=== PATIENT | male | born 1975 | race Caucasian/White ===

== ENCOUNTER → 2017-02-25 | Outpatient (CLI) | payer BC ==
--- NOTE | 2017-02-25 08:29 | CT ---
EXAMINATION TYPE: CT sinus wo con DATE OF EXAM: 02/25/2017 7:04 AM COMPARISON: 11/07/2015 HISTORY: 21-year-old male with chronic sinusitis CT DLP: 628.7 mGycm Automated exposure control for dose reduction was used. TECHNIQUE: Noncontrast axial views of the paranasal sinuses were obtained. Coronal reconstructions pe rformed. FINDINGS: Similar trace mucosal thickening in the region of the right maxillary antrum. Otherwise, no significa nt mucosal thickening within the paranasal sinuses or air-fluid level. Reactive lynnette- osteogenesis is not seen. There is no destruction of the osseous salazar of the paranasal sinuses. The osteomeatal complexes are patent. Slight rightward nasal septal deviation. The imaged brain, sella, skull base and orbits are normal in appearance. Mastoid air cells and middle ear cavities are well pneumatized. Reformatted images confirm above findings. IMPRESSION: Similar trace mucosal thickening in the region of the right maxillary antrum. No other significant pa ranasal sinus disease seen. Rightward nasal septal deviation.
== END | disposition home or self-care (01) ==
LOC: RADCTMAIN 06:39
PROVIDERS: ATTEND Otolaryngology
DX: J34.89 Other specified disorders of nose and nasal sinuses (principal); J34.2 Deviated nasal septum
CPT/HCPCS: 70486

== ENCOUNTER → 2017-12-06 | Outpatient (CLI) | payer BC ==
[2017-12-06 19:10] LABS: ALT 33 U/L (21-72); AST 30 U/L (17-59); Albumin 4.2 g/dL (3.5-5.0); Alkaline Phosphatase 75 U/L (38-126); Anion Gap 13 mmol/L; Blood Urea Nitrogen 17 mg/dL (9-20); Calcium 9.7 mg/dL (8.4-10.2); Carbon Dioxide 25 mmol/L (22-30); Chloride 103 mmol/L (98-107); Cholesterol 212 mg/dL (<200); Glucose 95 mg/dL (74-99); HDL Cholesterol 46 mg/dL (40-60); LDL Cholesterol,Calculated 92 mg/dL (0-99); Potassium 4.1 mmol/L (3.5-5.1); Sodium 141 mmol/L (137-145); Total Bilirubin 0.8 mg/dL (0.2-1.3); Total Protein 7.5 g/dL (6.3-8.2); Triglycerides 371 mg/dL (<150); Uric Acid 7.7 mg/dL (3.5-8.5)
[2017-12-06 19:18] LABS: Basophils # (A) 0.1 k/uL (0-0.2); Basophils % (A) 1 %; Eosinophils # (A) 0.2 k/uL (0-0.7); Eosinophils % (A) 2 %; HCT 48.3 % (39.0-53.0); HGB 15.7 gm/dL (13.0-17.5); Lymphocytes # (A) 1.9 k/uL (1.0-4.8); Lymphocytes % (A) 22 %; MCH 29.9 pg (25.0-35.0); MCHC 32.4 g/dL (31.0-37.0); MCV 92.1 fL (80.0-100.0); Mean Platelet Volume 7.8; Monocytes # (A) 0.4 k/uL (0-1.0); Monocytes % (A) 5 %; Neutrophils % (A) 69 %; Platelet Count 239 k/uL (150-450); RBC 5.24 m/uL (4.30-5.90); WBC 8.7 k/uL (3.8-10.6)
== END | disposition home or self-care (01) ==
LOC: MMGSC 10:38
PROVIDERS: ATTEND Family Medicine
DX: Z00.00 Encounter for general adult medical examination without abnormal findings (principal); M10.9 Gout, unspecified
CPT/HCPCS: 36415; 80053; 80061; 84439; 84443; 84550; 85025

== ENCOUNTER → 2019-07-20 | Outpatient (CLI) | payer BC ==
--- NOTE | 2019-07-20 21:41 | CONS ---
CONSULTATION DATE OF SERVICE: 07/20/2019 43-year-old gentleman has been re-evaluated in Sleep Center for obstructive sleep apnea- hypopnea syndrome. HISTORY OF PRESENT ILLNESS/SLEEP WAKE EVALUATION: Patient has been diagnosed with obstructive sleep apnea about 8 years ago, was started on treatment with CPAP. After that, underwent bariatric surgery and significantly lost his weight around 80 pounds. Subsequently, his breathing at that time improved and he stopped using his CPAP equipment. Later he again increased his weight and developed snoring and headaches and his symptoms of sleep apnea again have been present. SLEEP SCHEDULE: His sleep schedule now from 10 p.m. until 6 a.m. on working days and from 10:30 p.m. to 7:15 am on weekends. FALLING ASLEEP: No problem with falling asleep, although he has TV in bedroom. Sometimes patient has problems with falling asleep with the Lexapro. He the problem with falling asleep. DURING SLEEP: Usually sleep on the side position. He snores, wakes up from sleep about 4 times with 2 episodes of nocturia. DURING THE DAY/SLEEP WAKE EVALUATION: No history of hypnagogic hallucinations, sleep paralysis or cataplexy. [place] Sleepiness Scale significantly increased to 16. PAST MEDICAL HISTORY: Positive for acid reflux, headaches, anxiety, gout. MEDICATIONS: Omeprazole, probenecid, colchicine, propranolol, Lexapro. PAST SURGICAL HISTORY: Right knee surgery, right wrist surgery, sinus surgery in 2017, elbow surgeries bilaterally. SOCIAL HISTORY: Negative for smoking. Alcohol consumption occasional. FAMILY HISTORY: Heart problems, stroke, arthritis, sinus headache, sleep apnea, snoring, acid reflux. REVIEW OF SYSTEMS: Multiple awakenings from sleep. Sleepiness during the day, headaches. PHYSICAL EXAMINATION: During physical exam, gentleman without distress. BP 150/87, HR 62, RR 16, height 5 feet and 7 inches, weight 255, body mass index 48.6, temperature 98.8, oxygen saturation at room air 97%. Oropharynx: Low position of soft palate. Mallampati 4, wide neck 19-1/4 inches in circumference. Neck Supple, no JVD. Thyroid is not palpable. LUNGS Clear to percussion and to auscultation. Good air exchange. No wheezing or rhonchi. HEART S1, S2 regular. No murmurs, gallops, or rubs. ABDOMEN: Obese. Soft and nontender. Bowel sounds are present. No organomegaly appreciated. EXTREMITIES No clubbing or cyanosis. STEELSCOPE OPERATOR Awake, alert, and oriented X3. Cranial nerves 2 to 7 intact. There is no fasciculation or atrophy. noted. No focal deficits observed. IMPRESSION: 1. History of obstructive sleep apnea-hypopnea syndrome 8 years ago, was started on treatment with CPAP but significantly lost weight and stopped treatment and then increased weight again. Presently, snoring, multiple awakenings from sleep, extremely low position of soft palate, Mallampati 4, wide neck 19-1/4 inches in circumference, sleepiness during the day. [place] Sleepiness Scale 16. Obstructive sleep apnea-hypopnea syndrome. 2. Obesity, body mass index 48.6. 3. Acid reflux. 4. Headaches. 5. Anxiety. 6. Difficulties to initiate sleep secondary to anxiety. 7. History of gout. PLAN: 1. Home sleep apnea test. 2. CPAP/BiPAP titration if sleep study confirms obstructive sleep apnea-hypopnea syndrome. 3. Preferable position during sleep on the side. 4. No driving if patient feels any sleepiness. 5. I will see patient for follow up visit to explain results of testing and following plan. Thank you very much for referring this patient for consultation. Sincerely, Jeferson Armijo MD, PhD, FAASM Diplomat of [place] [employer] [place] [employer] Reprographics Associate of [facility] [place] MMODL / MCKENNAN: [id number] /
== END | disposition home or self-care (01) ==
LOC: SLEEP 16:30
PROVIDERS: ATTEND Internal Medicine
DX: G47.33 Obstructive sleep apnea (adult) (pediatric) (principal); K21.9 Gastro-esophageal reflux disease without esophagitis; R51 Headache; F41.9 Anxiety disorder, unspecified; E66.9 Obesity, unspecified; Z68.42 Body mass index [BMI] 45.0-49.9, adult; Z87.39 Personal history of other diseases of the musculoskeletal system and connective tissue; Z79.899 Other long term (current) drug therapy; Z79.891 Long term (current) use of opiate analgesic
CPT/HCPCS: 99211

== ENCOUNTER → 2019-10-26 | Outpatient (CLI) | payer BC ==
--- NOTE | 2019-10-26 15:58 | PN ---
PROGRESS NOTE DATE OF SERVICE: 10/26/2019 This patient is a 43-year-old gentleman who has been followed in Sleep Center for treatment of obstructive sleep apnea-hypopnea syndrome. Recently the patient had a home sleep apnea test which showed moderate obstructive sleep apnea-hypopnea syndrome. After that the patient received Auto PAP and today is his first visit after starting to use CPAP equipment. The patient is able to use CPAP equipment every night without significant problems related to mask fitting, pressure or humidification. He sleeps better with the machine. Does not snore. [place] Sleepiness Scale today is 7. I checked his CPAP unit. Range of the pressure is from 5 to 20. Average pressure is 11.1. Leak is 19 L/minute. Apnea-hypopnea index is 0.9, which is absolutely perfect. MEDICATIONS: 1. Omeprazole. 2. Probenecid. 3. Colchicine. 4. Propranolol. 5. Lexapro. PHYSICAL EXAMINATION: GENERAL: A pleasant patient in no distress. VITAL SIGNS: BP 142/73, HR 60, RR 16, weight 252, temperature 98.4, oxygen saturation at room air 95%. Height 5 feet 7 inches. Body mass index 39.4. HEENT: [place]AN[place]. Evaluation of oropharynx showed tongue protrudes midline. Extremely low position of soft palate. Mallampati IV. NECK: Supple. No JVD. Thyroid is not palpable. LUNGS: Clear to percussion and to auscultation. Good air exchange. No wheezing or rhonchi. HEART: S1, S2 regular. No murmurs, gallops or rubs. ABDOMEN: Obese. EXTREMITIES: No clubbing or cyanosis. YARN TWISTER: Awake, alert, and oriented X3. Cranial nerves 2 to 7 intact. There is no fasciculation or atrophy. noted. No focal deficits observed. IMPRESSION: 1. Moderate obstructive sleep apnea-hypopnea syndrome by results of home sleep apnea test. Apnea-hypopnea index 18.8 with oxygen desaturation to 84%, under full control with Auto PAP. Patient has demonstrated great compliance with treatment, benefitting from treatment. 2. Obesity. 3. Acid reflux. 4. History of headaches. 5. History of anxiety. 6. History of gout. PLAN: 1. Patient will continue to use CPAP equipment every night for the whole night. I will decrease the maximal pressure to 15. 2. Losing weight. 3. No driving if feeling any sleepiness. 4. I will maintain all necessary prescriptions for CPAP supplies, including mask, tube, filters. 5. Losing weight. Thank you very much for allowing me to participate in the management of your patient. Sincerely, Jeferson Armijo MD, PhD, FAASM Diplomat of [place] [employer] [place] [employer] Roof Truss Detailer of [facility] [place] MMODL / MCKENNAN: [id number] /
== END ==
LOC: SLEEP 14:36
PROVIDERS: ATTEND Internal Medicine
DX: G47.33 Obstructive sleep apnea (adult) (pediatric) (principal); E66.9 Obesity, unspecified; K21.9 Gastro-esophageal reflux disease without esophagitis; R51 Headache; F41.9 Anxiety disorder, unspecified; M10.9 Gout, unspecified; Z99.89 Dependence on other enabling machines and devices; Z79.899 Other long term (current) drug therapy; Z68.39 Body mass index [BMI] 39.0-39.9, adult

== ENCOUNTER → 2019-12-19 | Outpatient (CLI) | payer BC ==
--- NOTE | 2019-12-19 11:34 | US ---
EXAMINATION TYPE: US venous doppler duplex LE LT DATE OF EXAM: 12/19/2019 10:44 AM COMPARISON: NONE CLINICAL HISTORY: M25.562 calf pain. SIDE PERFORMED: Left TECHNIQUE: The lower extremity deep venous system is examined utilizing real time linear array sonog juan with graded compression, doppler sonography and color-flow sonography. VESSELS IMAGED: External Iliac Vein (EIV) Common Femoral Vein Deep Femoral Vein Greater Saphenous Vein * Femoral Vein Popliteal Vein Small Saphenous Vein * Proximal Calf Veins (* superficial vessels) Left Leg: Negative for DVT IMPRESSION: No evidence for DVT.
== END | disposition home or self-care (01) ==
LOC: RADUSWWP 10:42
PROVIDERS: ATTEND Orthopaedic Surgery
DX: M25.562 Pain in left knee (principal); M17.12 Unilateral primary osteoarthritis, left knee; E78.5 Hyperlipidemia, unspecified; I80.9 Phlebitis and thrombophlebitis of unspecified site

== ENCOUNTER → 2020-04-25 | Outpatient (CLI) | payer BC ==
--- NOTE | 2020-04-25 18:39 | SFUN ---
SLEEP CENTER FOLLOW UP NOTE DATE OF SERVICE: 04/25/2020 This patient is a 44-year-old gentleman who has been followed in Sleep Center for treatment of obstructive sleep apnea-hypopnea syndrome. The patient successfully continues to use his CPAP equipment every night. He does not snore with the machine. He sleeps well. [place] Sleepiness Scale today is 10, which is borderline. I checked the patient's CPAP unit. Usage is 30/30 nights for more than 4 hours, average 8.1 hours per night. Pressure is in the range of 5 to 15. Average pressure is 11. Apnea-hypopnea index is only 0.7. Leak is in normal range at 13 L/minute. MEDICATIONS: Omeprazole, Lexapro. PHYSICAL EXAMINATION: GENERAL: A pleasant patient in no distress. VITAL SIGNS: BP 136/86, HR 78, RR 16, height 5 feet 6 inches, weight 235, body mass index 37.9, temperature 98, oxygen saturation at room air 97%. HEENT: PERRLA, EOMI. Evaluation of oropharynx showed tongue protrudes midline. Low position of soft palate. Mallampati IV. NECK: Supple. No JVD. Thyroid is not palpable. LUNGS: Clear to percussion and to auscultation. Good air exchange. No wheezing or rhonchi. HEART: S1, S2 regular. No murmurs, gallops or rubs. ABDOMEN: Obese. EXTREMITIES: No clubbing or cyanosis. MEDICATION TECHNICIAN: Awake, alert, and oriented X3. Cranial nerves 2 to 7 intact. There is no fasciculation or atrophy. noted. No focal deficits observed. IMPRESSION: 1. Moderate obstructive sleep apnea-hypopnea syndrome. Patient demonstrated 100% compliance with treatment, benefitting from treatment. 2. Obesity. 3. Acid reflux. 4. History of headaches. 5. Gout. 6. History of anxiety. 7. Status post left knee surgery. PLAN: 1. Patient will continue to use CPAP equipment every night for the whole night. 2. Losing weight. 3. Sleep hygiene with regular time in bed for at least 7-1/2 to 8 hours. 4. No driving if feeling any sleepiness. 5. Follow-up visit in one year, or earlier if patient has any problems. Thank you for allowing me to participate in the management of your patient. Sincerely, Jeferson Armijo MD, PhD, FAASM Diplomat of [place] [employer] [place] [employer] Farmworker [employer] of [facility] [place] MMNATASHAL / LAVINIA: [id number] /
== END | disposition home or self-care (01) ==
LOC: SLEEP 16:51
PROVIDERS: ATTEND Internal Medicine
DX: G47.33 Obstructive sleep apnea (adult) (pediatric) (principal); E66.9 Obesity, unspecified; K21.9 Gastro-esophageal reflux disease without esophagitis; M10.9 Gout, unspecified; F41.9 Anxiety disorder, unspecified; Z86.69 Personal history of other diseases of the nervous system and sense organs; Z68.37 Body mass index [BMI] 37.0-37.9, adult; Z98.890 Other specified postprocedural states; Z99.89 Dependence on other enabling machines and devices; Z79.899 Other long term (current) drug therapy

== ENCOUNTER → 2021-05-28 | Outpatient (CLI) | payer BC ==
--- NOTE | 2021-05-28 21:39 | SFUN ---
SLEEP CENTER FOLLOW UP NOTE DATE OF SERVICE: 05/28/2021 CLINICAL: 45-year-old gentleman has been followed in Sleep Center for treatment of obstructive sleep apnea-hypopnea syndrome. Titration with positive air pressure has been done for correction of respiratory abnormalities during sleep. DESCRIPTION OF PROCEDURE: The standard montage for clinical polysomnography included the electroencephalogram, the electrocardiogram, the mentalis surface electromyography and Lead II cardiography. The respiratory battery consisted of measurements of nasal /buccal air flow, pressure transducer measurements from the nose, thoracic and /or abdominal effort and intercostal surface electromyography. Video monitoring has been done to check for any parasomnia events. Nocturnal oxyhemoglobin saturations were obtained by finger oximetry. Step-peraza titration with positive airway pressure was utilized to control respiratory events. RESULTS: The patient successfully continues to use CPAP equipment every night for the whole night. [place] Sleepiness Scale today is 10, which is slightly above normal. I checked CPAP unit. Range of the pressure 5-17 with ridge pressure 14.5 cm of water. Usage is 30/30 nights for more than 4 hours. Average 8.3 hours per night. Leak is 4 L/minute which is absolutely normal. Apnea-hypopnea index is only 0.9, which is perfect. MEDICATIONS: Omeprazole 40 mg once a day. Lexapro once a day. PHYSICAL EXAMINATION: GENERAL: Patient in no distress. BP 143/86, HR 68, RR 16, height 5 feet 7 inches, weight 245. Body mass index 38.8, temperature 98.1, oxygen saturation at room air 97%. HEENT: Examination of oropharynx showed low position of soft palate. Mallampati IV. PERRLA, EOMI, evaluation of oropharynx showed tongue protrudes midline. NECK: Supple, no JVD. Thyroid is not palpable. LUNGS: Clear to percussion and to auscultation. Good air exchange. No wheezing or rhonchi. HEART: S1, S2 regular. No murmurs, gallops, or rubs. ABDOMEN: Soft and nontender. Bowel sounds are present. No organomegaly appreciated. EXTREMITIES: No clubbing or cyanosis. ANTISQUEAK WORKER: Awake, alert, and oriented X3. Cranial nerves 2 to 7 intact. There is no fasciculation or atrophy. noted. No focal deficits observed. IMPRESSION: 1. Moderate obstructive sleep apnea-hypopnea syndrome. The patient demonstrated 100% compliance with treatment total normal respiration on CPAP. 2. Obesity. 3. Acid reflux. 4. History of headaches. 5. Gout. 6. History of anxiety. 7. Status post left knee surgery. 8. Status post recent left leg fracture and surgical treatment. PLAN: 1. Patient will continue to use PAP equipment every night for the whole night. 2. Sleep hygiene with regular time in bed for at least 7-1/2 to 8 hours. 3. Precautions related to driving. No driving if feeling sleepiness. 4. I will maintain all necessary prescription for PAP supplies including mask, tube, filters. 5. Watching weight. 6. Follow-up visit in 6 months or earlier if patient has any problems. Thank you very much for allowing me to participate in the management of your patient. Jeferson Armijo MD, PhD, FAASM Diplomat of [place] Billing Clerk of [facility] [place] MMODL / MCKENNAN: [id number] /
== END ==
LOC: SLEEP 14:43
PROVIDERS: ATTEND Internal Medicine
DX: G47.33 Obstructive sleep apnea (adult) (pediatric) (principal); E66.9 Obesity, unspecified; K21.9 Gastro-esophageal reflux disease without esophagitis; F41.9 Anxiety disorder, unspecified; M10.9 Gout, unspecified; Z87.81 Personal history of (healed) traumatic fracture; Z98.890 Other specified postprocedural states; Z99.89 Dependence on other enabling machines and devices; Z68.38 Body mass index [BMI] 38.0-38.9, adult

== ENCOUNTER → 2021-12-04 | Outpatient (CLI) | payer BC ==
--- NOTE | 2021-12-04 12:19 | SFUN ---
SLEEP CENTER FOLLOW UP NOTE DATE OF SERVICE: 12/04/2021 This 46-year-old gentleman has been followed in Sleep Center for treatment of obstructive sleep apnea-hypopnea syndrome. The patient continues to use his CPAP equipment every night for the whole night, but the machine started to create a loud noise, and that may have created problems related to sleep. [place] Sleepiness Scale today is 10, which is slightly increased. I checked the patient's CPAP unit. Range of the pressure is 5 to 17, average pressure 14.4. Usage 30/30 nights and 22/30 nights more than 4 hours, average 6.2 hours per night. Leak is 0 L/minute. Apnea-hypopnea index is 2, which is totally normal. The patient also complained that when he starts to use the machine, he feels the pressure is too low and he has to wait until the pressure goes up. RAMP is off and EPR is zero. MEDICATIONS: 1. Omeprazole 40 mg once a day. 2. Lexapro 20 mg once a day. PHYSICAL EXAMINATION: GENERAL: Pleasant patient in no distress. VITAL SIGNS: BP 140/84, HR 71, RR 14, weight 258.2, temperature 96.9, height 5 feet 7 inches, The patient's weight increased by 13 pounds. Oxygen saturation at room air 96%. HEENT: PERRLA, EOMI, evaluation of oropharynx showed tongue protrudes midline. Extremely low position of soft palate; Mallampati IV. NECK: Supple, no JVD. Thyroid is not palpable. LUNGS: Clear to percussion and to auscultation. Good air exchange. No wheezing or rhonchi. HEART: S1, S2 regular. No murmurs, gallops, or rubs. ABDOMEN: Obese. EXTREMITIES: No clubbing or cyanosis. FOOD AND BEVERAGE OUTLETS MANAGER: Awake, alert, and oriented X3. Cranial nerves 2 to 7 intact. There is no fasciculation or atrophy. noted. No focal deficits observed. IMPRESSION: 1. Obstructive sleep apnea-hypopnea syndrome. Patient demonstrated 100% compliance with treatment, benefitting from treatment. The machine is noisy. The patient feels there is not enough pressure when he starts to use CPAP at the beginning of the night. 2. Obesity. 3. Acid reflux. 4. Gout. 5. History of headaches. 6. History of anxiety. 7. Status post left knee surgery. 8. Status post left leg fracture and surgical treatment. PLAN: 1. I changed regimen of the machine to range of the pressure 10 to 17. The patient tried this level pressure was satisfied. He likes it. 2. Prescription for new CPAP unit, as his machine is very noisy. 3. I changed the EPR up to 3. 4. Patient will continue to use PAP equipment every night for the whole night. 5. Sleep hygiene with regular time in bed for at least 7-1/2 to 8 hours. 6. Precautions related to driving. No driving if feeling sleepiness. 7. I will maintain all necessary prescription for PAP supplies including mask, tube, filters. 8. Watching weight. 9. Follow-up visit in 30 to 90 days after he receives his new machine to evaluate compliance and clinical effect, to be sure that everything is working properly. Thank you very much for allowing me to participate in the management of your patient. Sincerely, Jeferson Armijo MD, PhD, FAASM Diplomat of [place] [employer] Sleep Medicine Board of [place] [employer] Medicine Biostatistics Teacher of [facility] [place] MMODL / MCKENNAN: [id number] /
== END ==
LOC: SLEEP 09:57
PROVIDERS: ATTEND Internal Medicine
DX: G47.33 Obstructive sleep apnea (adult) (pediatric) (principal); E66.9 Obesity, unspecified; K21.9 Gastro-esophageal reflux disease without esophagitis; M10.9 Gout, unspecified; F41.9 Anxiety disorder, unspecified; Z98.890 Other specified postprocedural states; Z87.81 Personal history of (healed) traumatic fracture; Z79.899 Other long term (current) drug therapy

== ENCOUNTER → 2022-09-07 | Outpatient (CLI) | payer BC ==
--- NOTE | 2022-09-18 21:21 | CE ---
CARDIAC ELECTROPHYSIOLOGY REPORT STUDY PERFORMED: 7-day event monitor. INDICATIONS FOR STUDY: Cardiac arrhythmia. FINDINGS: The patient was monitored for 7 days. The baseline rhythm appeared to be sinus mechanism. The patient did have multiple episodes of sinus tachycardia. During these episodes, he was symptomatic. Otherwise, no SVT noted. No significant sinus pause or sinus arrest. No advanced AV block noted. CONCLUSION: 1. Sinus rhythm as a baseline mechanism. 2. Multiple episodes of sinus tachycardia associated with symptoms. MMODL / IJN: [id number] /
--- NOTE | 2022-09-22 10:28 | EM ---
CARDIAC ELECTROPHYSIOLOGY REPORT STUDY PERFORMED: 7-day event monitor. INDICATIONS FOR STUDY: Cardiac arrhythmia. FINDINGS: The patient was monitored for 7 days. The baseline rhythm appeared to be sinus mechanism. The patient did have multiple episodes of sinus tachycardia. During these episodes, he was symptomatic. Otherwise, no SVT noted. No significant sinus pause or sinus arrest. No advanced AV block noted. CONCLUSION: 1. Sinus rhythm as a baseline mechanism. 2. Multiple episodes of sinus tachycardia associated with symptoms. MMODL / MCKENNAN: [id number] / [facility]OOK[facility]rant
== END | disposition home or self-care (01) ==
LOC: RADECHMAIN 07:42
PROVIDERS: ATTEND Family Medicine
DX: I47.1 Supraventricular tachycardia (principal); R00.2 Palpitations
CPT/HCPCS: 93270

== ENCOUNTER 2023-07-28 19:16 | Emergency (ER) | payer BC ==
[2023-07-28 19:27] VITALS: RESP 18; TEMP 98.5
[2023-07-28] MEDS ORDERED: ONDANSETRON 4 MG/2 ML VIAL IVP STA (21:38)
[2023-07-28] MEDS ORDERED: PANTOPRAZOLE 40 MG/10 ML VIAL IVP STA (21:38)
[2023-07-28] MEDS ORDERED: SODIUM CHLORIDE 0.9% 1,000 ML IV STA (21:38)
[2023-07-28] MEDS ORDERED: MAG HYDROX/AL HYDROX/SIMETH 30 ML, HYOSCYAMINE ELIXIR 10 ML, LIDOCAINE 2% GLYDO JELLY 1... PO STA ×3 (21:39)
--- NOTE | 2023-07-28 21:59 | ED ---
General Adult HPI - General Chief complaint: Chest Pain Stated complaint: Chest pains Time Seen by Provider: 07/28/23 21:29 Source: patient, RN notes reviewed, old records reviewed Mode of arrival: ambulatory Limitations: no limitations - History of Present Illness Initial comments: Patient is a 47-year-old male who presents emergency Department complaining of possible acid reflux. Complaining of burning chest pain that radiates from the epigastric region sternally up to the back of his throat. States he does have a history of acid reflux that usually responds to antacids or omeprazole. Patient states that it has not responded over the last few days and seems somewhat worse. He has been on someone increased Tylenol and Motrin lately due to recent hand surgery. States he is following instructions when he is taking it more or less throughout the day. States as well as some pain currently. Denies any palliative or provocative factors. Unknown last EGD. Denies any nausea or vomiting. Denies any other chest pain or shortness of breath. Denies any diarrhea or constipation. It has any abdominal pain. Denies any fevers. Patient is concerned as he does have a family history of heart disease. Since her further evaluation at this time. Symptoms have been ongoing for the last 4- 5 days with minimal change or improvement. - Related Data Allergies Allergy/AdvReac Type Severity Reaction Status Date / Time cefuroxime [From Ceftin] Allergy Rash/Hives Verified 07/28/23 19:23 Review of Systems ROS Statement: Those systems with pertinent positive or pertinent negative responses have been documented in the HPI. Review of Systems: CONST: Denies fever EYES: Denies blurry vision ENT: Denies nasal congestion C/V: Endorses acid reflux type burning chest pain. RESP: Denies shortness of breath GI: Denies abdominal pain : Denies dysuria SKIN: Denies rash. MSK: Denies joint pain. NEURO: Denies headache ROS Other: All systems not noted in ROS Statement are negative. Past Medical History Past Medical History: GERD/Reflux, Hypertension History of Any Multi-Drug Resistant Organisms: None Reported Past Surgical History: Orthopedic Surgery Additional Past Surgical History / Comment(s): gastric sleeve Past Psychological History: No Psychological Hx Reported Smoking Status: Never smoker Past Alcohol Use History: None Reported Past Drug Use History: None Reported General Exam - General Exam Comments Initial Comments: General: Appears in no acute distress. HEAD: Normal with no signs of head trauma. EYES: PERRLA, EOMI, conjunctiva normal, no discharge. ENT: Hearing grossly intact, normal oropharynx. RESPIRATORY: Clear breath sounds bilaterally. No wheezes, rales, or rhonchi. C/V: Regular rate and rhythm. S1 and S2 auscultated, no edema, peripheral pulses 2+ and intact throughout ABD: Abd is soft, nontender, nondistended EXT: Normal range of motion, no obvious deformity SKIN: No rashes or lesions observed on exposed skin. NEURO: Alert and oriented x 4. Limitations: no limitations Course Vital Signs 07/28/23 07/28/23 19:24 22:52 Temperature 98.5 F Pulse Rate 72 57 L Respiratory 18 Rate Blood Pressure 152/92 144/82 O2 Sat by Pulse 98 97 Oximetry Medical Decision Making - Medical Decision Making Was pt. sent in by a medical professional or institution (, PA, CHIEF DEPUTY SHERIFF, urgent care, hospital, or [facility]...) When possible be specific @ -No Did you speak to anyone other than the patient for history (EMS, parent, family, police, friend...)? What history was obtained from this source @ -No Did you review nursing and triage notes (agree or disagree)? Why? @ -I reviewed and agree with nursing and triage notes Were old charts reviewed (outside hosp., previous admission, EMS record, old EKG, old radiological studies, urgent care reports/EKG's, [facility] records)? Report findings @ -Old charts were reviewed. Differential Diagnosis (chest pain, altered mental status, abdominal pain women, abdominal pain men, vaginal bleeding, weakness, fever, dyspnea, syncope, headache, dizziness, GI bleed, back pain, seizure, CVA, palpatations, mental health, musculoskeletal)? @ -Differential Chest Pain: Stable Angina, Unstable Angina, STEMI, NSTEMI Aortic Dissection, Pneumothorax, Musculoskeletal, Esophageal Spasm GERD, Cholecystitis, Pancreatitis, Zoster, this is not meant to be an all-inclusive list. EKG interpreted by me (3pts min.). @ -As above X-rays interpreted by me (1pt min.). @ -Chest x-ray reveals no evidence of obvious cardiopulmonary process. CT interpreted by me (1pt min.). @ -None done U/S interpreted by me (1pt. min.). @ -None done What testing was considered but not performed or refused? (CT, X-rays, U/S, labs)? Why? @ -None What meds were considered but not given or refused? Why? @ -None Did you discuss the management of the patient with other professionals (professionals i.e. , PA, CHIEF DEPUTY SHERIFF, lab, RT, psych nurse, social science manager, nurse research, teacher, court officer, case packer)? Give summary @ -No Was smoking cessation discussed for >3mins.? @ -No Was critical care preformed (if so, how long)? @ -No Were there social determinants of health that impacted care today? How? (Homelessness, low income, unemployed, alcoholism, drug addiction, transportation, low edu. Level, literacy, decrease access to med. care, long-term, rehab)? @ -No Was there de-escalation of care discussed even if they declined (Discuss DNR or withdrawal of care, Hospice)? DNR status @ -No What co-morbidities impacted this encounter? (DM, HTN, Smoking, COPD, CAD, Cancer, CVA, ARF, Chemo, Hep., AIDS, mental health diagnosis, sleep apnea, morbid obesity)? @ -GERD Was patient admitted / discharged? Hospital course, mention meds given and route, prescriptions, significant lab abnormalities, going to OR and other pertinent info. @ -Based on patient's presentation and physical exam, I do suspect patient is likely experiencing acid reflux type symptoms however cannot definitively rule out cardiac etiology. Therefore we'll obtain cardiac workup including troponin, screening EKG, chest x-ray. Abdominal labs also be obtained. Patient be sent likely to with IV fluids, Zofran,, as well as a GI cocktail. Vital signs within acceptable limits. He was in agreement this plan. EKG showed no evidence of acute ischemia.Chest x-ray revealed no evidence of acute cardio pulmonary process. Patient's laboratory studies are all within acceptable limits including an undetectable troponin. Heart scores low. On reevaluation, patient's symptoms have completely resolved following the GI cocktail. We discuss he is likely having discomfort secondary to GERD. Strict return precautions discussed. He will be discharged home this time. Recommended obtaining Mylanta or Pepto-Bismol [id number] which she was in agreement. He would like to go home. We did discuss with the patient the patient may have an ulcer if he continues to have symptoms and may require EGD. He expressed understanding. I instructed the patient to follow up with their PCP in the next 1-3 days. I provided contact information for follow up with gastroenterology. I explained that the patient should return to the emergency department if they experience any worsening symptoms. Strict return precautions were discussed with the patient. The patient expressed understanding of these instructions. I answered all questions that the patient had. The patient was discharged home in good condition with their prescriptions and follow up information. Undiagnosed new problem with uncertain prognosis? @ -No Drug Therapy requiring intensive monitoring for toxicity (Heparin, Nitro, Insulin, Cardizem)? @ -No Were any procedures done? @ -No Diagnosis/symptom? @ -GERD Acute, or Chronic, or Acute on Chronic? @ -Acute on chronic Uncomplicated (without systemic symptoms) or Complicated (systemic symptoms)? @ -Uncomplicated Side effects of treatment? @ -none Exacerbation, Progression, or Severe Exacerbation] @ -no Poses a threat to life or bodily function? @ -no - Lab Data Result diagrams: 07/28/23 21:38 07/28/23 21:38 Lab Results 07/28/23 07/28/23 07/28/23 Range/Units 21:38 21:38 21:38 WBC 7.5 (3.8-10.6) k/uL RBC 3.97 L (4.30-5.90) m/uL Hgb 14.5 (13.0-17.5) gm/dL Hct 34.8 L (39.0-53.0) % MCV 87.6 (80.0-100.0) fL MCH 36.6 H (25.0-35.0) pg MCHC 34.4 (31.0-37.0) g/dL RDW 13.5 (11.5-15.5) % Plt Count 171 (150-450) k/uL MPV 7.3 Neutrophils % 46 % Lymphocytes % 47 % Monocytes % 5 % Eosinophils % 1 % Basophils % 1 % Neutrophils # 3.4 (1.3-7.7) k/uL Lymphocytes # 3.5 (1.0-4.8) k/uL Monocytes # 0.3 (0-1.0) k/uL Eosinophils # 0.1 (0-0.7) k/uL Basophils # 0.1 (0-0.2) k/uL Sodium 138 (137-145) mmol/L Potassium 4.2 (3.5-5.1) mmol/L Chloride 107 (98-107) mmol/L Carbon Dioxide 22 (22-30) mmol/L Anion Gap 9 mmol/L BUN 11 (9-20) mg/dL Creatinine 0.78 (0.66-1.25) mg/dL Est GFR (CKD-EPI)AfAm >90 (>60 ml/min/1.73 sqM) Est GFR (CKD-EPI)NonAf >90 (>60 ml/min/1.73 sqM) Glucose 84 (74-99) mg/dL Calcium 9.1 (8.4-10.2) mg/dL Total Bilirubin 0.6 (0.2-1.3) mg/dL AST 23 (17-59) U/L ALT 23 (4-49) U/L Alkaline Phosphatase 66 (38-126) U/L Troponin I <0.012 (0.000-0.034) ng/mL Total Protein 7.0 (6.3-8.2) g/dL Albumin 4.1 (3.5-5.0) g/dL Amylase 50 (30-110) U/L Lipase 66 (23-300) U/L - EKG Data -: EKG Interpreted by Me EKG Comments: 12-lead Electrocardiogram Interpretation Note EKG was reviewed and interpreted by myself. 12-lead ECG performed at 1938 is interpreted by me as revealing normal sinus rhythm at a rate of 62 beats per m inute. Pilot is normal. VA interval is 146 ms, QRS duration is 92 ms, QTc is 391 ms.. There were no ST or T wave abnormalities to suggest myocardial ischemia or injury. R wave progression across the precordium was satisfactory. By my interpretation this EKG is non-diagnostic for acute ischemia. Disposition Clinical Impression: GERD (gastroesophageal reflux disease) Disposition: HOME SELF-CARE Condition: Good Instructions (If sedation given, give patient instructions): GERD (Gastroesophageal Reflux Disease) (ED) Is patient prescribed a controlled substance at d/c from ED?: No Referrals: Dot Marsh MD [Primary Care Provider] - 1-2 days Melissa Rosario MD [STAFF PHYSICIAN] - 1-2 days Time of Disposition: 23:18
[2023-07-28 22:39] LABS: Basophils # (A) 0.1 k/uL (0-0.2); Basophils % (A) 1 %; Eosinophils # (A) 0.1 k/uL (0-0.7); Eosinophils % (A) 1 %; HCT 34.8 % (39.0-53.0); HGB 14.5 gm/dL (13.0-17.5); Lymphocytes # (A) 3.5 k/uL (1.0-4.8); Lymphocytes % (A) 47 %; MCH 36.6 pg (25.0-35.0); MCV 87.6 fL (80.0-100.0); Mean Platelet Volume 7.3; Monocytes # (A) 0.3 k/uL (0-1.0); Monocytes % (A) 5 %; Neutrophils # (A) 3.4 k/uL (1.3-7.7); Neutrophils % (A) 46 %; Platelet Count 171 k/uL (150-450); RBC 3.97 m/uL (4.30-5.90); RDW 13.5 % (11.5-15.5); WBC 7.5 k/uL (3.8-10.6)
--- NOTE | 2023-07-28 22:41 | XR ---
EXAMINATION TYPE: XR chest 2V DATE OF EXAM: 07/28/2023 COMPARISON: Chest x-ray June 11, 2022 HISTORY: Abdominal pain. Burning chest pain. TECHNIQUE: Frontal and lateral views of the chest are obtained. FINDINGS: Somewhat low lung volumes redemonstrated. There is no suspicious new focal air space opacit y, pleural effusion, or pneumothorax seen. The cardiac silhouette size is stable and within normal l imits. The osseous structures are intact. IMPRESSION: No acute process. No significant change from prior.
[2023-07-28 22:45] LABS: MCHC 34.4 g/dL (31.0-37.0)
[2023-07-28 22:51] LABS: ALT 23 U/L (4-49); AST 23 U/L (17-59); African American GFR (CKD) >90 (>60 ml/min/1.73 sqM); Albumin 4.1 g/dL (3.5-5.0); Alkaline Phosphatase 66 U/L (38-126); Amylase 50 U/L (30-110); Anion Gap 9 mmol/L; Blood Urea Nitrogen 11 mg/dL (9-20); Calcium 9.1 mg/dL (8.4-10.2); Carbon Dioxide 22 mmol/L (22-30); Chloride 107 mmol/L (98-107); Glucose 84 mg/dL (74-99); Lipase 66 U/L (23-300); Non-African American GFR(CKD) >90 (>60 ml/min/1.73 sqM); Potassium 4.2 mmol/L (3.5-5.1); Sodium 138 mmol/L (137-145); Total Bilirubin 0.6 mg/dL (0.2-1.3)
[2023-07-28 22:57] VITALS: BP 144/82; PULSE 57
== END 2023-07-28 23:23 | disposition home or self-care (01) ==
LOC: EC 19:16
DX: K21.9 Gastro-esophageal reflux disease without esophagitis (principal); I10 Essential (primary) hypertension; Z88.1 Allergy status to other antibiotic agents
CPT/HCPCS: 36415; 93005; 80053; 82150; 83690; 84484; 85025; 71046; 99285; 96374; 96375; 96361; J2405; C9113

== ENCOUNTER 2024-04-18 17:11 | Observation (INO) | payer BC ==
--- NOTE | 2024-04-18 17:50 | ED ---
Chest Pain HPI - General Source: patient, RN notes reviewed Mode of arrival: ambulatory Limitations: no limitations <Josie Araujo - Last Filed: 04/18/24 17:47> <Prasad Foster - Last Filed: 04/18/24 21:50> - General Chief Complaint: Chest Pain Stated Complaint: Chest pain, SOB, sent by PCP Time Seen by Provider: 04/18/24 17:29 - History of Present Illness Initial Comments: Quick Note-patient is a 48-year-old female presents emergency department chief complaint of chest pain and shortness of breath. Chest pain is consistently located on the left side of his chest wall radiating to his jaw. Patient was seen roughly 2 weeks ago In the Emergency Room. Workup was obtained. Patient was discharged home. He denies personal history of heart attack, CVA,no blood thinner use. Patient was advised by his primary care provider to quit emergency department for further evaluation. (Josie Araujo) Dictation was produced using [employer] ([employer]) dictation software. please excuse any grammatical, word or spelling errors. Chief Complaint: 48-year-old male with chest pain History of Present Illness: Patient is a 48-year-old male who has past medical history of hypertension presents to the ER for chest pressure. Patient states that his symptoms began a week and a half ago when he was at a rodeo for his daughter. Then he had episode of chest pressure nausea and a little bit of diaphoresis. He was checked out by gas reverser found to have elevated blood pressure. He was sent to the emergency department where they did some workup. Apparently his workup was negative he was discharged sent to follow-up with his primary care doctor. Primary care doctor ordered stress test. He told his primary care doctor that his symptoms, return. He is reevaluated by the PCP and sent to the ER. Patient complains of mild pressure. He apparently has extensive, history. The ROS documented in this emergency department record has been reviewed and confirmed by me. Those systems with pertinent positive or negative responses have been documented in the HPI. All other systems are other negative and/or noncontributory. (Prasad Foster) - Related Data Allergies Allergy/AdvReac Type Severity Reaction Status Date / Time cefuroxime [From Ceftin] Allergy Rash/Hives Verified 07/28/23 19:23 Review of Systems ROS Other: All systems not noted in ROS Statement are negative. <Josie Araujo - Last Filed: 04/18/24 17:47> ROS Other: All systems not noted in ROS Statement are negative. <Prasad Foster - Last Filed: 04/18/24 21:50> ROS Statement: Those systems with pertinent positive or pertinent negative responses have been documented in the HPI. Past Medical History Past Medical History: GERD/Reflux, Hypertension History of Any Multi-Drug Resistant Organisms: None Reported Past Surgical History: Orthopedic Surgery Additional Past Surgical History / Comment(s): gastric sleeve Past Psychological History: No Psychological Hx Reported Smoking Status: Never smoker Past Alcohol Use History: None Reported Past Drug Use History: None Reported <Pablo Araujooe - Last Filed: 04/18/24 17:47> General Exam Limitations: no limitations <Pablo Araujooe - Last Filed: 04/18/24 17:47> <Prasad Foster - Last Filed: 04/18/24 21:50> - General Exam Comments Initial Comments: Visual Physical Exam Vital signs reviewed General: Well-appearing, nontoxic, no acute distress. Head: Normocephalic, atraumatic Eyes: PERRLA, EOMI ENT: Airway patent Chest: Nonlabored breathing Skin: No visual rash, normal skin tone Neuro: Alert and oriented 3 Musculoskeletal: No gross abnormalities (Manuelaelemacey,Josie) PHYSICAL EXAM: General Impression: Alert and oriented x3, not in acute distress HEENT: Normocephalic atraumatic, extra-ocular movements intact, pupils equal and reactive to light bilaterally, mucous membranes moist. Cardiovascular: Heart regular rate and rhythm Chest: Able to complete full sentences, no retractions, no tachypnea Abdomen: abdomen soft, non-tender, non-distended, no organomegaly Musculoskeletal: Pulses present and equal in all extremities, no peripheral edema Motor: no focal deficits noted Neurological: CN II-XII grossly intact, no focal motor or sensory deficits noted Skin: Intact with no visualized rashes Psych: Normal affect and mood (Prasad Foster) Course Vital Signs 04/18/24 17:32 Temperature 98 F Pulse Rate 77 Respiratory 18 Rate Blood Pressure 138/91 O2 Sat by Pulse 98 Oximetry Chest Pain MDM <Josie Araujo - Last Filed: 04/18/24 17:47> <Prasad Foster - Last Filed: 04/18/24 21:50> - [facility] I completed the quick note portion of this chart signed Josie Araujo PA-C (Josie Araujo) Was pt. sent in by a medical professional or institution (IVETTE Hassan, RETURNED TELEPHONE EQUIPMENT APPRAISER, urgent care, hospital, or alf...) When possible be specific @ -No Did you speak to anyone other than the patient for history (EMS, parent, family, police, friend...)? What history was obtained from this source @ -No Did you review nursing and triage notes (agree or disagree)? Why? @ -I reviewed and agree with nursing and triage notes Were old charts reviewed (outside hosp., previous admission, EMS record, old EKG, old radiological studies, urgent care reports/EKG's, alf records)? Report findings @ -No old charts were reviewed Differential Diagnosis (chest pain, altered mental status, abdominal pain women, abdominal pain men, vaginal bleeding, musculoskeletal, weakness, fever, dyspnea, syncope, headache, dizziness, GI bleed, back pain, seizure, CVA, palpatations, mental health)? @ -Differential Chest Pain: Stable Angina, Unstable Angina, STEMI, NSTEMI Aortic Dissection, Pneumothorax, Musculoskeletal, Esophageal Spasm GERD, Cholecystitis, Pancreatitis, Zoster, this is not meant to be an all-inclusive list. EKG interpreted by me (3pts min.). @ -My EKG interpretation: Ventricular rate 70, sinus rhythm,. 114, cures 95, QTc 4 5. No LA prolongation, no QTC prolongation, no ST or T-wave changes noted. Overall, this EKG is unremarkable X-rays interpreted by me (1pt min.). @ -Chest x-ray is nonacute CT interpreted by me (1pt min.). @ -None done U/S interpreted by me (1pt. min.). @ -None done What testing was considered but not performed or refused? (CT, X-rays, U/S, labs)? Why? @ -None What meds were considered but not given or refused? Why? @ -None Did you discuss the management of the patient with other professionals (professionals i.e. IVETTE Hassan, RETURNED TELEPHONE EQUIPMENT APPRAISER, lab, RT, psych nurse, clinical social worker, bologna maker, teacher, correctional officer lieutenant, block and case maker)? Give summary @ -Case discussed with hospitalist for admission Was smoking cessation discussed for >3mins.? @ -No Was critical care preformed (if so, how long)? @ -No Were there social determinants of health that impacted care today? How? (Homelessness, low income, unemployed, alcoholism, drug addiction, transportation, low edu. Level, literacy, decrease access to med. care, shelter, rehab)? @ -No Was there de-escalation of care discussed even if they declined (Discuss DNR or withdrawal of care, Hospice)? DNR status @ -No What co-morbidities impacted this encounter? (DM, HTN, Smoking, COPD, CAD, Cancer, CVA, ARF, Chemo, Hep., AIDS, mental health diagnosis, sleep apnea, morbid obesity)? @ -None Was patient admitted / discharged? Hospital course, mention meds given and route, prescriptions, significant lab abnormalities, going to OR and other pertinent info. @ -48-year-old male presents to the emergency department with symptoms suspicious of unstable angina. Vital signs upon arrival are within acceptable limits. Patient has multiple high risk features. Laboratory evaluation obtained found to be unremarkable. Troponin is negative. EKG is nonischemic. Patient will be admitted observation consultation to cardiology. Undiagnosed new problem with uncertain prognosis? @ -No Drug Therapy requiring intensive monitoring for toxicity (Heparin, Nitro, Insulin, Cardizem)? @ -No Were any procedures done? @ -No Diagnosis/symptom? Acute, or Chronic, or Acute on Chronic? Uncomplicated (without systemic symptoms) or Complicated (systemic symptoms)? @ -Acute coronary syndrome Side effects of treatment? @ -No Exacerbation, Progression, or Severe Exacerbation? @ -No Poses a threat to life or bodily function? How? (Chest pain, [place], [place], pneumonia, PE, COPD, DKA, ARF, appy, cholecystitis, CVA, Diverticulitis, Homicidal, Suicidal, threat to staff... and all critical care pts) @ -yes (Prasad Foster) Disposition <Josie Araujo - Last Filed: 04/18/24 17:47> Decision Time: 21:50 <Prasad Foster - Last Filed: 04/18/24 21:50> Clinical Impression: ACS (acute coronary syndrome) Disposition: ADMITTED IP TO THIS HOSP Condition: Fair Referrals: Margarita Pierre DO [Primary Care Provider] - 1-2 days
[2024-04-18 19:54] LABS: Basophils # (A) 0.1 k/uL (0-0.2); Basophils % (A) 1 %; Eosinophils # (A) 0.1 k/uL (0-0.7); Eosinophils % (A) 2 %; HGB 14.7 gm/dL (13.0-17.5); Lymphocytes # (A) 3.1 k/uL (1.0-4.8); Lymphocytes % (A) 42 %; MCH 29.2 pg (25.0-35.0); MCHC 32.8 g/dL (31.0-37.0); Mean Platelet Volume 6.8; Monocytes # (A) 0.4 k/uL (0-1.0); Monocytes % (A) 6 %; Neutrophils # (A) 3.6 k/uL (1.3-7.7); Neutrophils % (A) 48 %; Platelet Count 199 k/uL (150-450); RBC 5.05 m/uL (4.30-5.90); RDW 13.2 % (11.5-15.5); WBC 7.4 k/uL (3.8-10.6)
[2024-04-18 20:06] LABS: ALT 31 U/L (4-49); African American GFR (CKD) >90 (>60 ml/min/1.73 sqM); Albumin 4.5 g/dL (3.5-5.0); Anion Gap 10 mmol/L; Blood Urea Nitrogen 16 mg/dL (9-20); Calcium 8.7 mg/dL (8.4-10.2); Carbon Dioxide 24 mmol/L (22-30); Chloride 106 mmol/L (98-107); Glucose 98 mg/dL (74-99); Non-African American GFR(CKD) >90 (>60 ml/min/1.73 sqM); Sodium 140 mmol/L (137-145); Total Bilirubin 0.7 mg/dL (0.2-1.3); Total Protein 7.2 g/dL (6.3-8.2)
[2024-04-18 20:10] LABS: INR 0.9 (<1.2); Partial Thromboplastin Time 24.1 sec (22.0-30.0); Prothrombin Time 10.2 sec (10.0-12.5)
[2024-04-18 20:14] LABS: NT-Pro-B-Type Natriuretic Pept <20 pg/mL
[2024-04-18 20:24] LABS: AST 34 U/L (17-59); Alkaline Phosphatase 60 U/L (38-126); Magnesium 2.2 mg/dL (1.6-2.3); Potassium 4.3 mmol/L (3.5-5.1)
--- NOTE | 2024-04-18 20:33 | XR ---
EXAMINATION TYPE: XR chest 2V DATE OF EXAM: 04/18/2024 7:25 PM CLINICAL INDICATION:Male, 48 years old with history of Chest Pain; [facility] COMPARISON: Chest radiographs from 07/28/2023 TECHNIQUE: XR chest 2V Frontal and lateral views of the chest. FINDINGS: Lungs/Pleura: There is no evidence of pleural effusion, focal consolidation, or pneumothorax. Pulmonary vascularity: Unremarkable. Heart/mediastinum: Cardiomediastinal silhouette is unremarkable. Musculoskeletal: No acute osseous pathology. IMPRESSION: No acute cardiopulmonary disease/process.
[2024-04-18] MEDS ORDERED: NITROGLYCERIN SL TABS 0.4 MG TAB SUBLINGUAL PRN (21:50)
[2024-04-18] MEDS: ASPIRIN 81 MG PO STA (22:07)
[2024-04-18] MEDS: NITROGLYCERIN SL TABS 0.4 MG TAB SUBLINGUAL STA (22:08)
[2024-04-18] MEDS: KETOROLAC 15 MG/ML 1 ML VIAL IVP STA (23:06)
[2024-04-19] MEDS ORDERED: DOBUTamine DRIP for NUC MED 500 MG in DEXTROSE/WATER 1 250ML.BAG IV PRN (08:00)
[2024-04-19] MEDS ORDERED: ASPIRIN 325 MG TAB PO SCH (09:00)
[2024-04-19 09:10] LABS: Chol/HDL Ratio 4.56 Ratio; LDL Cholesterol,Calculated 124.7 mg/dL (0.0-131.0)
[2024-04-19] MEDS: ASPIRIN 81 MG PO SCH (09:20)
[2024-04-19] MEDS: lisinopriL 10 MG TAB PO SCH (09:21)
--- NOTE | 2024-04-19 11:32 | P.CRDCN ---
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 We have been asked to evaluate the patient for chest pain. Patient states he started having discomfort in his chest about a month ago it was a pain or pressure and he noticed that it went into his left shoulder and left jaw. He was at an event with his daughter where EMS checked his blood pressure and it was high and he was feeling flushed. He was treated at [facility] in [place] in the improved his blood pressure and let him go home. He followed up with LINDA Gao, PCP and has been scheduled for stress test on Wednesday and echocardiogram in May. Patient was instructed to come back if the patient had worsening chest pain but he noticed that he has been having ongoing chest pain called the office and was sent into the hospital. Patient is a non-smoker. Patient is seen today in the emergency center waiting for bed on the cardiac stepdown unit. EKG: Sinus rhythm with no acute ST-T wave changes x 2 Chest x-ray: No acute process Laboratory studies: CBC, CMP, D-dimer all within normal limits. Troponin negative x 3. Triglycerides 165, cholesterol 202, LDL 124, HDL 44. Home cardiac medications: Atorvastatin 40 mg at bedtime, lisinopril 10 mg daily, Toprol XL 50 mg daily. Patient is also on Wegovy. Review Of Systems: At the time of my exam: CONSTITUTIONAL: Denies fever or chills. HEENT: Denies blurred vision, vision changes, or eye pain. Denies hemoptysis CARDIOVASCULAR: Denies chest pain. Denies orthopnea. Denies PND. Denies palpitations RESPIRATORY: Denies shortness of breath. GASTROINTESTINAL: Denies abdominal pain. Denies nausea or vomiting. HEMATOLOGIC: Denies bleeding disorders. GENITOURINARY: Denies any blood in urine. SKIN: Denies puritis. Denies rash. Physical examination: Gen: This is a 48-year-old male in no acute distress VS: reviewed, blood pressure 126/84, heart rate 73, pulse ox 96% on room air. HEENT: Head is atraumatic, normocephalic. Pupils equal, round. Sclerae is anicteric. NECK: Supple. No JVD. LUNGS: Clear to auscultation. No wheezes or rhonchi. No intercostal retractions. HEART: Regular rate and rhythm. No murmur. ABDOMEN: Soft No tenderness. EXTREMITIES: No pedal edema. No calf tenderness. NEUROLOGICAL: Patient is awake, alert and oriented x3. Assessment: Chest pain, acute coronary syndrome ruled out Family history of premature coronary artery disease Hypertension Hyperlipidemia Plan: Resume patient's home cardiac medications Obtain A1c Schedule patient for dobutamine stress echo today Obtain 2-D echocardiogram and Doppler study to assess cardiac structure and function If testing is unremarkable, patient is cleared for discharge and may follow-up in the office in [address] Macario. Thank you kindly for this consultation. Nurse practitioner note has been reviewed, I agree with documented findings and plan of care. Patient was seen and examined. Past Medical History Past Medical History: GERD/Reflux, Hypertension History of Any Multi-Drug Resistant Organisms: None Reported Past Surgical History: Orthopedic Surgery Additional Past Surgical History / Comment(s): gastric sleeve Past Psychological History: No Psychological Hx Reported Smoking Status: Never smoker Past Alcohol Use History: None Reported Past Drug Use History: None Reported Medications and Allergies Home Medications Medication Instructions Recorded Confirmed Type ARIPiprazole [Abilify] 2 mg PO HS 04/19/24 04/19/24 History Atorvastatin [Lipitor] 40 mg PO HS #30 tab 04/19/24 Rx Metoprolol Succinate (ER) [Toprol 50 mg PO DAILY 04/19/24 04/19/24 History XL] Omeprazole [PriLOSEC] 40 mg PO DAILY 04/19/24 04/19/24 History Probenecid/Colchicine 1 tab PO DAILY 04/19/24 04/19/24 History [Probenecid-Colchicine Tablet] Semaglutide [Wegovy] 1 mg SQ FR 04/19/24 04/19/24 History Testosterone [Testosterone 1.62% 1.25 gm TRANSDERM HS 04/19/24 04/19/24 History (1250 mg)] Venlafaxine HCl [Effexor XR] 150 mg PO DAILY 04/19/24 04/19/24 History clonazePAM [KlonoPIN] 1 mg PO HS 04/19/24 04/19/24 History lisinopriL [Zestril] 10 mg PO DAILY #30 tab 04/19/24 Rx Allergies Allergy/AdvReac Type Severity Reaction Status Date / Time cefuroxime [From Ceftin] Allergy Rash/Hives Verified 04/19/24 08:07 Physical Exam Vitals: Vital Signs Temp Pulse Resp BP Pulse Ox 04/19/24 06:59 76 18 136/84 97 04/19/24 04:13 67 18 101/61 94 L 04/18/24 22:05 70 18 136/87 95 04/18/24 17:32 98 F 77 18 138/91 98 Intake and Output 04/18/24 04/19/24 04/19/24 22:59 06:59 14:59 Other: Weight 109.769 kg Results 04/18/24 19:31 04/18/24 19:31 Cardiac Enzymes 04/18/24 04/18/24 04/18/24 Range/Units 19:31 19:31 22:08 AST 34 (17-59) U/L Troponin I <0.012 <0.012 (0.000-0.034) ng/mL 04/19/24 Range/Units 02:04 AST (17-59) U/L Troponin I <0.012 (0.000-0.034) ng/mL Coagulation 04/18/24 Range/Units 19:31 PT 10.2 (10.0-12.5) sec APTT 24.1 (22.0-30.0) sec CBC 04/18/24 Range/Units 19:31 WBC 7.4 (3.8-10.6) k/uL RBC 5.05 (4.30-5.90) m/uL Hgb 14.7 (13.0-17.5) gm/dL Hct 45.0 (39.0-53.0) % Plt Count 199 (150-450) k/uL Comprehensive Metabolic Panel 04/18/24 Range/Units 19:31 Sodium 140 (137-145) mmol/L Potassium 4.3 (3.5-5.1) mmol/L Chloride 106 (98-107) mmol/L Carbon Dioxide 24 (22-30) mmol/L BUN 16 (9-20) mg/dL Creatinine 0.74 (0.66-1.25) mg/dL Glucose 98 (74-99) mg/dL Calcium 8.7 (8.4-10.2) mg/dL AST 34 (17-59) U/L ALT 31 (4-49) U/L Alkaline Phosphatase 60 (38-126) U/L Total Protein 7.2 (6.3-8.2) g/dL Albumin 4.5 (3.5-5.0) g/dL Current Medications Generic Name Dose Route Start Last Admin Trade Name Freq PRN Reason Stop Dose Admin Aspirin 325 mg 04/19/24 09:00 Aspirin 325 Mg Tab PO DAILY JASON Nitroglycerin 0.4 mg 04/18/24 21:50 Nitroglycerin Sl Tabs 0.4 Mg Tab SUBLINGUAL Q5M PRN Chest Pain Intake and Output 04/18/24 04/19/24 04/19/24 22:59 06:59 14:59 Other: Weight 109.769 kg 04/18/24 19:31 04/18/24 19:31
--- NOTE | 2024-04-19 12:42 | P.HPIM ---
History of Present Illness H&P Date: 04/19/24 Chief Complaint: Chest pain History and Physical and Discharge Summary: This is a 48-year-old gentleman past medical history significant for morbid o besity, gastric sleeve, family history of CAD-father had an IA/CABG at age 45, hypertension, gastroesophageal reflux disease and multiple other medical issues presented to the ER with complaints of midsternal chest pressure. Reports he has been having fluctuating chest pressure for approximately 1 month. [place], developed left chest pain radiating to left shoulder and into the jaw, felt warm and flushed. Evaluated by EMS at the event and discovered to be hypertensive. Proceeded to the emergency room in [facility], received treatment, blood pressure stabilized and recommended to follow-up with his PCP. Upon returning home, followed up with his PCP and was scheduled for echocardiogram and stress test. 2 days ago began having nonexertional left shoulder armpit pain.Yesterday, developed midsternal chest pain accompanied by nausea, exertional shortness of breath, notified his PCP patient and was directed to the ER. Denies diaphoresis and reports blood pressure has remained controlled. Troponins negative x 3, EKG reported sinus rhythm, chest x-ray nonacute, hematology, coagulation, chemistry panels unremarkable. Cardiology consulted. Review of Systems ROS Statement: Those systems with pertinent positive or pertinent negative responses have been documented in the HPI. ROS Other: All systems not noted in ROS Statement are negative. Past Medical History Past Medical History: GERD/Reflux, Hypertension History of Any Multi-Drug Resistant Organisms: None Reported Past Surgical History: Orthopedic Surgery Additional Past Surgical History / Comment(s): gastric sleeve Past Psychological History: No Psychological Hx Reported Smoking Status: Never smoker Past Alcohol Use History: None Reported Past Drug Use History: None Reported Medications and Allergies Home Medications Medication Instructions Recorded Confirmed Type ARIPiprazole [Abilify] 2 mg PO HS 04/19/24 04/19/24 History Atorvastatin [Lipitor] 40 mg PO HS #30 tab 04/19/24 Rx Metoprolol Succinate (ER) [Toprol 50 mg PO DAILY 04/19/24 04/19/24 History XL] Omeprazole [PriLOSEC] 40 mg PO DAILY 04/19/24 04/19/24 History Probenecid/Colchicine 1 tab PO DAILY 04/19/24 04/19/24 History [Probenecid-Colchicine Tablet] Semaglutide [Wegovy] 1 mg SQ FR 04/19/24 04/19/24 History Testosterone [Testosterone 1.62% 1.25 gm TRANSDERM HS 04/19/24 04/19/24 History (1250 mg)] Venlafaxine HCl [Effexor XR] 150 mg PO DAILY 04/19/24 04/19/24 History clonazePAM [KlonoPIN] 1 mg PO HS 04/19/24 04/19/24 History lisinopriL [Zestril] 10 mg PO DAILY #30 tab 04/19/24 Rx Allergies Allergy/AdvReac Type Severity Reaction Status Date / Time cefuroxime [From Ceftin] Allergy Rash/Hives Verified 04/19/24 08:07 Physical Exam Vitals: Vital Signs Temp Pulse Resp BP Pulse Ox 04/19/24 09:00 73 18 126/84 96 04/19/24 08:00 70 16 133/87 96 04/19/24 06:59 76 18 136/84 97 04/19/24 04:13 67 18 101/61 94 L 04/18/24 22:05 70 18 136/87 95 04/18/24 17:32 98 F 77 18 138/91 98 Intake and Output 04/18/24 04/19/24 04/19/24 22:59 06:59 14:59 Other: Weight 109.769 kg PHYSICAL EXAM: VITAL SIGNS: As above GENERAL: Obese, alert and oriented x 3, sitting up on stretcher, no acute distress HEENT: Normocephalic, atraumatic conjunctivae normal. eyes normal. NECK: Supple, no JVD. No thyroid enlargement. No LNs CARDIOVASCULAR: S1, S2 regular. No murmur RESPIRATION: Unlabored, equal air entry, clear to auscultation. ABDOMEN: Soft, nondistended, nontender . No guarding. no masses palpable. No ascites, No hepatosplenomegaly.Bowel sounds heard. LEGS: No edema. no swelling NERVOUS SYSTEM: Cranial N 2-12 grossly normal.No focal deficits. Strength and sensation grossly intact. Skin: Warm and dry, no rash Results CBC & Chem 7: 04/18/24 19:31 04/18/24 19:31 Labs: Abnormal Lab Results - Last 24 Hours (Table) 04/19/24 Range/Units 02:04 Triglycerides 165.00 H (0.00-149.00) mg/dL Cholesterol 202.00 H (0.00-200.00) mg/dL Assessment and Plan Assessment: Chest pain, troponins negative x 3, in a patient with family history of CAD, Hypertension Hyperlipidemia Morbid obesity, BMI 38 Plan: Continue on current medication regimen ,monitoring and symptomatic treatment. Hemoglobin A1c pending. evaluated by cardiology, echo and dobutamine stress test ordered. Patient will be discharged home today in a stable condition with guarded prognosis pending stress test results, final DC recommendations and clearance for discharge. Discharge Medication List ARIPiprazole [Abilify] 2 mg PO HS 04/19/24 [History] Atorvastatin [Lipitor] 40 mg PO HS #30 tab 04/19/24 [Rx] Metoprolol Succinate (ER) [Toprol XL] 50 mg PO DAILY 04/19/24 [History] Omeprazole [PriLOSEC] 40 mg PO DAILY 04/19/24 [History] Probenecid/Colchicine [Probenecid-Colchicine Tablet] 1 tab PO DAILY 04/19/24 [History] Semaglutide [Wegovy] 1 mg SQ FR 04/19/24 [History] Testosterone [Testosterone 1.62% (1250 mg)] 1.25 gm TRANSDERM HS 04/19/24 [History] Venlafaxine HCl [Effexor XR] 150 mg PO DAILY 04/19/24 [History] clonazePAM [KlonoPIN] 1 mg PO HS 04/19/24 [History] lisinopriL [Zestril] 10 mg PO DAILY #30 tab 04/19/24 [Rx] The impression and plan of care has been dictated as directed. : I performed a history and examination of this patient, discussed the same with the dictator. I agree with the dictator's note ,documented as a scribe. Any additional findings or plans will be noted.
[2024-04-19] MEDS ORDERED: DOBUTamine DRIP for NUC MED 500 MG/250 ML BAG IV ONE (13:00)
--- NOTE | 2024-04-19 13:06 | CA ---
Transthoracic Echo Report Name: Rocael Hendricks Age: 48 Gender: M : 1975 Exam Date: 04/19/2024 09:47 Exam Location: [facility] Ht (in): 67 Wt (lb): 242 Ordering Physician: Tori Blackwood Attending/Referring Phys: Applied Biology Professor Doris Shi RDCS Procedure CPT: Indications: LVF Cardiac Hx: Technical Quality: Fair Contrast 1: Total Dose (mL): Contrast 2: Total Dose (mL): MEASUREMENTS (Male / Female) Normal Values 2D ECHO LV Diastolic Diameter PLAX 4.6 cm 4.2 - 5.9 / 3.9 - 5.3 cm LV Systolic Diameter PLAX 2.4 cm IVS Diastolic Thickness 1.3 cm 0.6 - 1.0 / 0.6 - 0.9 cm LVPW Diastolic Thickness 1.3 cm 0.6 - 1.0 / 0.6 - 0.9 cm LV Relative Wall Thickness 0.6 LA Systolic Diameter LX 4.1 cm 3.0 - 4.0 / 2.7 - 3.8 cm LA Volume 65.5 cm??? 18 - 58 / 22 - 52 cm??? LA Volume Index 28.2 cm???/m??? 16 - 28 cm???/m??? M-MODE Aortic Root Diameter MM 2.8 cm LA Systolic Diameter MM 3.4 cm LA Ao Ratio MM 1.2 DOPPLER AV Peak Velocity 132.4 cm/s AV Peak Gradient 7.0 mmHg AV Mean Gradient 4.1 mmHg AV Velocity Time Integral 32.2 cm LVOT Peak Velocity 109.8 cm/s LVOT Peak Gradient 4.8 mmHg LVOT Velocity Time Integral 24.5 cm Mitral A Point Velocity 62.8 cm/s Mitral E to A Ratio 1.1 MV Deceleration Time 191.3 ms TR Peak Velocity 273.1 cm/s TR Peak Gradient 29.8 mmHg FINDINGS Left Ventricle Mildly increased left ventricular wall thickness. Left ventricular cavity size normal. Normal left ventricular systolic function with no obvious regional wall motion abnormalities. Left ventricular ejection fraction is estimated at 55-60 %. Right Ventricle Mild right ventricular dilatation. Right ventricular systolic pressure within normal limits. Right Atrium Normal right atrial size. Left Atrium Mildly increased left atrial volume. Mitral Valve Structurally normal mitral valve. No mitral stenosis, regurgitation or prolapse. Aortic Valve Trileaflet aortic valve. No aortic valve stenosis or regurgitation. Tricuspid Valve Structurally normal tricuspid valve. Trace to mild tricuspid regurgitation. Pulmonic Valve Trace pulmonic regurgitation. Pericardium No pericardial effusion. Aorta Normal size aortic root and proximal ascending aorta. CONCLUSIONS Preserved LV size and systolic function Previewed by: Dr. Felix Macario MD (Electronically Signed) Final Date: 19 April 2024 13:05
[2024-04-19] MEDS: ACETAMINOPHEN TAB 325 MG TAB PO PRN (17:46)
[2024-04-19] MEDS: ATORVASTATIN 40 MG TAB PO SCH (19:55)
[2024-04-19] MEDS: ARIPiprazole 2 MG TAB PO SCH (22:33)
[2024-04-19] MEDS: clonazePAM 1 MG TAB PO SCH (22:33)
[2024-04-19] MEDS: PANTOPRAZOLE 40 MG TABLET PO STA (23:46)
[2024-04-20] MEDS: PANTOPRAZOLE 40 MG TABLET PO SCH (06:29)
--- NOTE | 2024-04-20 07:32 | CA ---
Dobutamine Stress Echocardiogram Report Rocael Hendricks Age: 48 Gender: M : 1975 Exam Date: 04/19/2024 12:40 Exam Location: [facility] Ordering Physician: Tori Blackwood Referring Physician: Merced MAURO Entry Level Accounting Clerk: anisa, Technologist: Ht (in): 67 Wt (lb): 242 Procedure CPT: Indication: Chest Pain ICD-9 Codes: Rhythm: Patient History: Chest pain and shortness of breath. Cardiac Medications: Medications in past 24 hours: Contrast: Definity Total Dose (mL): 3 Stress Results Protocol: Dobutamine Peak Dose (???g/kg/min): 40 Duration (min:sec): Atropine:(mg) 0.5 Target HR: 145 Double Product: [id number] Resting HR: 64 Resting BP: 128 / 76 Peak HR: 146 Peak BP: 162 / 54 Max Predicted HR: 170 86 % Max Predicted HR Stress Summary: BP Response: Reason for Termination: Exceeded target heart rate (85% max predicted) Cardiac Symptoms: Chest and lower jaw pain #4 ECG Analysis Resting EKG: Stress EKG: Arrhythmia: Echo Analysis Base Echo Analysis: Low Echo Anaylsis: Peak Echo Analysis: Recovery Echo: MEASUREMENTS (Male/Female) Normal Values CONCLUSIONS No ECG or echocardiographic evidence for ischemia during this lipidemia stress echo with Definity contrast Dr. Felix Macario MD (Electronically Signed) Final Date: 20 April 2024 07:31
--- NOTE | 2024-04-20 08:41 | P.PN ---
Subjective Patient is doing well. No chest discomfort no dizziness lightheadedness On examination heart sounds are normal Breath sounds are clear His 2D echo showed preserved LV and systolic function with mild LVH His dobutamine stress echo did not show any evidence for ischemia Impression Hypertension Atypical chest discomfort with normal stress echo with excellent augmentation of overall LV contractility without development of any wall motion abnormality Elevated blood pressure readings upon admission Normal troponins Very strong family history of premature coronary artery disease in the family, multiple members Plan stop metoprolol Stop testosterone Atorvastatin 40 mg p.o. daily Increase lisinopril to 20 mg p.o. daily Discharge home today and follow-up with Dr. Macario in 3 weeks Objective - Vital Signs Vital signs: Vital Signs Temp 97.0 F L 04/20/24 07:00 Pulse 75 04/20/24 07:00 Resp 15 04/20/24 02:14 BP 119/80 04/20/24 07:00 Pulse Ox 95 04/20/24 07:00 FiO2 Intake & Output 04/19/24 04/20/24 04/20/24 18:59 06:59 18:59 Weight 109.769 kg Other: # Voids 2 - Labs CBC & Chem 7: 04/18/24 19:31 04/18/24 19:31 Labs: Abnormal Lab Results - Last 24 Hours (Table) 04/19/24 Range/Units 02:04 Triglycerides 165.00 H (0.00-149.00) mg/dL Cholesterol 202.00 H (0.00-200.00) mg/dL
[2024-04-20] MEDS: VENLAFAXINE HCL ER 150 MG CAP PO SCH (09:32)
[2024-04-20] MEDS: METOPROLOL SUCCINATE (ER) 50 MG TAB.ER.24H PO SCH (09:32)
[2024-04-20 12:22] VITALS: BP 119/80; PULSE 75; RESP 15; TEMP 97
--- NOTE | 2024-04-22 16:13 | P.DS ---
Providers Date of admission: 04/18/24 21:57 Attending physician: Leon Painting MD Consults: 04/18/24 21:50 Consult Physician Urgent Consulting Provider: Michael Dunham Consult Reason/Comments: chest pain Do you want consulting provider notified?: Yes Primary care physician: Margarita Pierre Hospital Course: Final Diagnosis Chest pain, ACS has been ruled out patient had negative stress echo Hypertension Hyperlipidemia Morbid obesity, BMI 38 Gastroesophageal reflux disease Sleep apnea Hx of gastric sleve Discharge Disposition Patient stable for discharge home has been cleared by cardiology. Patient to stop metoprolol and testosterone. Patient will continue on Lipitor daily as well as increased dose of lisinopril to 20 mg daily. Patient to follow-up with Dr. Marsh in the office in 3 weeks. Hospital Course This is a 48-year-old gentleman past medical history significant for morbid obesity, gastric sleeve, family history of CAD-father had an KS/CABG at age 45, hypertension, gastroesophageal reflux disease and multiple other medical issues presented to the ER with complaints of midsternal chest pressure. Reports he has been having fluctuating chest pressure for approximately 1 month. Two weeks ago while [place] observing a rodeo event with his family, developed left chest pain radiating to left shoulder and into the jaw, felt warm and flushed. Evaluated by EMS at the event and discovered to be hypertensive. Proceeded to the emergency room in [facility], received treatment, blood pressure stabilized and recommended to follow-up with his PCP. Upon returning home, followed up with his PCP and was scheduled for echocardiogram and stress test. 2 days ago began having nonexertional left shoulder armpit pain.Yesterday, developed midsternal chest pain accompanied by nausea, exertional shortness of breath, notified his PCP patient and was directed to the ER. Denies diaphoresis and reports blood pressure has remained controlled. Troponins negative x 3, EKG reported sinus rhythm, chest x-ray nonacute, hematology, coagulation, chemistry panels unremarkable. Cardiology consulted. His 2D echo showed preserved LV and systolic function with mild LVH. His dobutamine stress echo did not show any evidence for ischemia. He is not having any chest pain, or shortness of breath. No dizziness or lightheadedness. His lungs are clear, S1 S2 auscultated, abdomen is soft and nontender. He will be discharged home. Please see medication reconciliation for a list of current medications. Thank you for allowing us to participate in the care of this patient. The impression and plan of care has been dictated by Rhonda Marcos, Nurse Practitioner as directed. Dr. Morales MD I have performed a history and physical examination and medical decision making of this patient, discussed the same with the dictator, and agree with the dictators assessment and plan as written, documented as a scribe. Based on total visit time, I have performed more than 50% of this visit. Patient Condition at Discharge: Fair Plan - Discharge Summary New Discharge Prescriptions: New Atorvastatin [Lipitor] 40 mg PO HS #30 tab Nitroglycerin Sl Tabs [Nitrostat] 0.4 mg SUBLINGUAL Q5M PRN #25 tab PRN Reason: Chest Pain lisinopriL [Prinivil] 20 mg PO DAILY #90 tablet Continue Venlafaxine HCl [Effexor XR] 150 mg PO DAILY Omeprazole [PriLOSEC] 40 mg PO DAILY clonazePAM [KlonoPIN] 1 mg PO HS Probenecid/Colchicine [Probenecid-Colchicine Tablet] 1 tab PO DAILY Semaglutide [Wegovy] 1 mg SQ FR ARIPiprazole [Abilify] 2 mg PO HS Discontinued Testosterone [Testosterone 1.62% (1250 mg)] 1.25 gm TRANSDERM HS lisinopriL [Zestril] 5 mg PO HS Metoprolol Succinate (ER) [Toprol XL] 50 mg PO DAILY Discharge Medication List ARIPiprazole [Abilify] 2 mg PO HS 04/19/24 [History] Atorvastatin [Lipitor] 40 mg PO HS #30 tab 04/19/24 [Rx] Omeprazole [PriLOSEC] 40 mg PO DAILY 04/19/24 [History] Probenecid/Colchicine [Probenecid-Colchicine Tablet] 1 tab PO DAILY 04/19/24 [History] Semaglutide [Wegovy] 1 mg SQ FR 04/19/24 [History] Venlafaxine HCl [Effexor XR] 150 mg PO DAILY 04/19/24 [History] clonazePAM [KlonoPIN] 1 mg PO HS 04/19/24 [History] Nitroglycerin Sl Tabs [Nitrostat] 0.4 mg SUBLINGUAL Q5M PRN #25 tab 04/20/24 [Rx] lisinopriL [Prinivil] 20 mg PO DAILY #90 tablet 04/20/24 [Rx] Follow up Appointment(s)/Referral(s): Felix Macario MD [STAFF PHYSICIAN] - 3 Weeks (Office will call with appointment time and date.) Leon Painting MD [STAFF PHYSICIAN] - 1 Week Patient Instructions/Handouts: Chest Pain (DC), Nuclear Stress Test (DC) Discharge Disposition: HOME SELF-CARE
== END 2024-04-20 10:45 | disposition home or self-care (01) ==
LOC: EC 17:11 → 6NMEDSUR 21:57
PROVIDERS: ADMIT Family Medicine; ATTEND Family Medicine
DX: R07.89 Other chest pain (principal); I10 Essential (primary) hypertension; K21.9 Gastro-esophageal reflux disease without esophagitis; E78.5 Hyperlipidemia, unspecified; G47.30 Sleep apnea, unspecified; E66.01 Morbid (severe) obesity due to excess calories; Z68.38 Body mass index [BMI] 38.0-38.9, adult; Z98.84 Bariatric surgery status; Z79.899 Other long term (current) drug therapy; Z88.1 Allergy status to other antibiotic agents; Z82.49 Family history of ischemic heart disease and other diseases of the circulatory system
CPT/HCPCS: 96374; 99285; 36415; 93005; 93306; 93351; 85379; 83880; 80061; 80053; 83735; 84484 ×2; 85025; 85610; 85730; 83036; 71046; G0378 ×3; J1250; Q9957; J1885

== ENCOUNTER → 2025-01-11 | Outpatient (CLI) | payer BC ==
[2025-01-11 15:42] VITALS: BP 134/82; PULSE 66; RESP 16; TEMP 98.4
--- NOTE | 2025-01-11 16:34 | P.SLEEP ---
History of Present Illness DATE: 01/11/2025 CONSULTATION/NEW PATIENT EVALUATION HISTORY OF PRESENT ILLNESS/SLEEP-WAKE EVALUATION: 49-year-old gentleman had be en evaluated in the sleep center for obstructive sleep apnea hypopnea syndrome. Patient has history of obstructive sleep apnea for about 6 years. He is on treatment with CPAP and continue to use CPAP equipment every night. Last time I saw patient in November 2021. I checked CPAP unit usage 100% of the time, 6.5 hours per night. Range of the pressure 10 to 17 cm of water, average 15.3 cm of water. Leak is 0 L/min, which is perfect. Apnea hypopnea index 0.4 which is normal. CPAP unit is old and noisy. SLEEP SCHEDULE: Usually sleep schedule 9:30 PM to 5 AM 7 days a week. FALLING ASLEEP: No problems with falling asleep. DURING SLEEP: No snoring with CPAP. No history of hypnogogical hallucinations, sleep paralysis, or cataplexy. DURING THE DAY/WAKE STATE: Some sleepiness during the day [place] sleepiness scale is increased to 14. Patient may take naps afternoon. PAST MEDICAL HISTORY: Gout, acid reflux, anxiety, headaches. PAST SURGICAL HISTORY: Status post left knee surgery, gastric sleeve, bilateral elbow surgery, bilateral knee surgery. MEDICATIONS: Have been reviewed, please see below. SOCIAL HISTORY: Please see below. FAMILY HISTORY: Please see below. REVIEW OF SYSTEMS: No snoring with CPAP. No fevers. No double vision. No recent chest pain. No shortness of breath. No abdominal pain. No bleeding episodes. No blood in urine. No seizure episodes. PHYSICAL EXAMINATION: GENERAL: A pleasant patient without any distress. VITAL SIGNS: Please see below, weight 259 pounds, BMI 41.1. HEENT: PERRLA, EOMI. Evaluation of oropharynx showed tongue protrudes midline, low position of soft palate Mallampati 4. NECK: Supple. No JVD. Thyroid is not palpable. 18.5 inches in circumference. LUNGS: Clear to percussion and to auscultation. Good air exchange. No wheezing or rhonchi. HEART: S1, S2 regular. No murmurs, gallops or rubs. ABDOMEN: Soft and nontender. Bowel sounds are present. No organomegaly appreciated. EXTREMITIES: No clubbing or cyanosis. LICENSED [employer]AL[employer]: Awake, alert, and oriented x3. Cranial nerves 2 to 7 intact. There is no fasciculation or atrophy noted. No focal deficits observed. ASSESSMENT: 1. Obstructive sleep apnea hypopnea syndrome for many years. Patient continue to use CPAP equipment every night for the whole night. CPAP unit is old and noisy. Extremely low position of soft palate Mallampati 4, wide neck 18.5 inches in circumference. 2. Obesity, BMI 41.1. 3. Gout. 4. Anxiety. 5 acid reflux. 6 . History of headaches. 7. Status post left knee surgery. 8. Status post gastric sleeve surgery. 9 . Status post bilateral elbow surgery. 10. Status post bilateral knee surgery. PLAN: 1. Prescription for new AutoPap unit. Patient should continue to use CPAP equipment every night for the whole night. 2. Follow-up visit in 31-90 days after patient will get new CPAP unit to document compliance with treatment, clinical effect of treatment and [place] adjustments related to mask fitting pressure and humidification. 3. Preferable position during sleep on the side. 4. No driving if patient feels any sleepiness. Patient is aware of civil and criminal liability for unsafe driving. 5. Sleep hygiene with regular sleep time for at least 7.5-8 hours. 6. Watching and losing weight. Thank you very much for referring this patient for consultation. Sincerely, Jeferson Armijo MD, PhD, FAASM. Diplomat of [place], Sleep Medicine Board by [place] [employer] [facility] [place] cc: Leon Painting MD Past Medical History Past Medical History: GERD/Reflux, Hypertension, Sleep Apnea/CPAP/BIPAP Additional Past Medical History / Comment(s): on cpap, hx of snoring, headaches, sinus headaches History of Any Multi-Drug Resistant Organisms: None Reported Past Surgical History: Orthopedic Surgery Additional Past Surgical History / Comment(s): gastric sleeve 2014 Past Anesthesia/Blood Transfusion Reactions: No Reported Reaction Past Psychological History: Anxiety Smoking Status: Never smoker Past Alcohol Use History: None Reported, Rare Past Drug Use History: None Reported - Past Family History Father Family Medical History: Coronary Artery Disease (CAD), Hypertension, Myocardial Infarction ([place]) Additional Family Medical History / Comment(s): cabbag, hx snoring Mother Family Medical History: CVA/TIA, Dementia Medications and Allergies Home Medications Medication Instructions Recorded Confirmed Type ARIPiprazole [Abilify] 2 mg PO HS 04/19/24 01/11/25 History Atorvastatin [Lipitor] 40 mg PO HS #30 tab 04/19/24 01/11/25 Rx Omeprazole [PriLOSEC] 40 mg PO DAILY 04/19/24 01/11/25 History Probenecid/Colchicine 1 tab PO DAILY 04/19/24 04/19/24 History [Probenecid-Colchicine Tablet] Semaglutide [Wegovy] 1 mg SQ FR 04/19/24 04/19/24 History Venlafaxine HCl [Effexor XR] 150 mg PO DAILY 04/19/24 01/11/25 History clonazePAM [KlonoPIN] 1 mg PO HS 04/19/24 01/11/25 History Nitroglycerin Sl Tabs [Nitrostat] 0.4 mg SUBLINGUAL Q5M PRN #25 tab 04/20/24 Rx lisinopriL [Prinivil] 20 mg PO DAILY #90 tablet 04/20/24 01/11/25 Rx Tirzepatide [Zepbound] 2.5 mg SQ WEEKLY 01/11/25 01/11/25 History Allergies Allergy/AdvReac Type Severity Reaction Status Date / Time cefuroxime [From Ceftin] Allergy Rash/Hives Verified 04/19/24 08:07 Physical Exam Vitals: Vital Signs Temp Pulse Resp BP Pulse Ox 01/11/25 15:40 98.4 F 66 16 134/82 96 Intake and Output 01/11/25 01/11/25 01/11/25 06:59 14:59 22:59 Other: Weight 117.48 kg Sleep Note - Sleep Data ESS Total: 14 - Sleep Note Sleep Note: Temperature: 98.4 F Pulse Rate: 66 Respiratory Rate: 16 Blood Pressure: 134/82 SpO2: 96 Height: 5 ft 6.5 in Weight: 117.48 kg BMI: Neck Circumference: 18.5
== END ==
LOC: 3 N SLEEP 15:15
PROVIDERS: ATTEND Internal Medicine
DX: G47.33 Obstructive sleep apnea (adult) (pediatric) (principal); E66.9 Obesity, unspecified; M10.9 Gout, unspecified; K21.9 Gastro-esophageal reflux disease without esophagitis; F41.9 Anxiety disorder, unspecified; Z98.890 Other specified postprocedural states; Z68.41 Body mass index [BMI] 40.0-44.9, adult; Z88.1 Allergy status to other antibiotic agents; Z99.89 Dependence on other enabling machines and devices
CPT/HCPCS: 99211